=== PATIENT | male | born 2000 | race Caucasian/White ===

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

== ENCOUNTER 2019-06-21 10:06 | Emergency (ER) | payer BC ==
[2019-06-21 11:09] VITALS: BP 119/58
[2019-06-21] MEDS ORDERED: Ibuprofen TAB* 400 MG PO ONE (11:40)
--- NOTE | 2019-06-21 11:41 | UC ---
Throat Pain/Nasal Hany HPI - HPI Summary HPI Summary: 19 y/o male presents to the urgent care c/o nasal congestion w/ yellowish nasal discharge for the past 2 weeks. Symptoms have worsen now w/ sore throat, GUTIERREZ, body aches. B/L ear pain and pressure, fatigue. Pain w/ swallowing is 5/10 w/ swollen tonsils for the past 4 days. He has felt earm, but has not taken his temp. Pt has taken OTD medications w/o any improvement. Pt denies SOB, dizziness GUTIERREZ, abdominal pain, chest pain, N/V/d. - History of Current Complaint Chief Complaint: UCRespiratory Stated Complaint: ST,SWOLLEN NECK,LEFT EAR PAIN Time Seen by Provider: 06/21/19 11:39 Hx Obtained From: Patient Onset/Duration: Gradual Onset, Lasting Weeks - 3 weeks, Still Present, Worse Since - 4 days w/ sore throat Severity: Moderate Pain Intensity: 5 - sore throat Pain Scale Used: 0-10 Numeric Cough: Nonproductive Associated Signs & Symptoms: Positive: Sinus Discomfort, Nasal Discharge - green , Fever - now - Epiglottits Risk Factors Epiglottis Risk Factors: Negative - Allergies/Home Medications Allergies/Adverse Reactions: Allergies Allergy/AdvReac Type Severity Reaction Status Date / Time No Known Allergies Allergy Verified 06/21/19 11:01 Home Medications: Home Medications Doxylam/PE/Dm/Acetaminophen/GG [Mucinex Sinus-Max Day/Nig] 1 cap PO PRN [History] PMH/Surg Hx/FS Hx/Imm Hx Previously Healthy: Yes - PT denies PMHX - Surgical History Surgical History: None - Family History Known Family History: Positive: None - Pt deneis FMHX Negative: Hypertension, Diabetes - Social History Occupation: Employed Full-time Lives: With Family Alcohol Use: Occasionally Substance Use Type: None Smoking Status (MU): Former Smoker Type: Cigarettes When Did the Patient Quit Smoking/Using Tobacco: THREE WEEKS AGO - Immunization History Vaccination Up to Date: Yes Review of Systems All Other Systems Reviewed And Are Negative: Yes Constitutional: Positive: Chills, Other - body aches Skin: Positive: Negative Eyes: Positive: Negative ENT: Positive: Sore Throat, Ear Ache - left ear pain, Nasal Discharge - green, Sinus Congestion, Sinus Pain/Tenderness, Other - green PND Respiratory: Positive: Cough - dry Cardiovascular: Positive: Negative Gastrointestinal: Positive: Negative Genitourinary: Positive: Negative Motor: Positive: Negative Neurovascular: Positive: Negative Musculoskeletal: Positive: Negative Neurological: Positive: Headache Psychological: Positive: Negative Is Patient Immunocompromised?: No Physical Exam - Summary Physical Exam Summary: VITAL SIGNS: Reviewed. GENERAL: Patient is a well developed and nourished male who is sitting comfortable in the examining table. Patient is not in any acute respiratory distress. HEAD AND FACE: No signs of trauma. No ecchymosis, hematomas or skull depressions. B/L maxillary and frontal sinus tenderness. EYES: PERRLA, EOMI x 2, No injected conjunctiva, no nystagmus. No photophobia. EARS: Hearing grossly intact. B/L ear canals clear. LF TM injected w/ erythema , bulging and mild discharge. No perforation. MOUTH: Positive pharynx with erythema, exudates, palatal petechiae. B/L tonsillar enlargement with no exudate. Uvula in midline.moderate yellowish PND NECK: Supple, trachea is midline, Positive anterior cervical lymphadenopathy, no JVD, no carotid bruit, no c-spine tenderness, neck with full ROM. No meningeal signs, no Kernig's or brudzinskis signs. CHEST: Symmetric, no tenderness at palpation LUNGS: Clear to auscultation bilaterally. No wheezing or crackles. CVS: Regular rate and rhythm, S1 and S2 present, no murmurs or gallops appreciated. ABDOMEN: Soft, non-tender. No signs of distention. No rebound no guarding, and no masses palpated. Bowel sounds are normal. EXTREMITIES: FROM in all major joints, no edema, no cyanosis or clubbing. NEURO: Alert and oriented x 3. No acute neurological deficits. Speech is normal and follows commands. SKIN: Dry and warm Triage Information Reviewed: Yes Vital Signs: Initial Vital Signs Temp 100.3 F 06/21/19 11:02 Pulse 100 06/21/19 11:02 Resp 18 06/21/19 11:02 BP 119/58 06/21/19 11:02 Pulse Ox 100 06/21/19 11:02 Throat Pain/Nasal Course/Dx - Course Course Of Treatment: 19 y/o male presents to the urgent care c/o nasal congestion w/ yellowish nasal discharge for the past 2 weeks. Symptoms have worsen now w/ sore throat, GUTIERREZ, body aches. B/L ear pain and pressure, fatigue. Pain w/ swallowing is 5/10 w/ swollen tonsils for the past 4 days. He has felt warm, but has not taken his temp. Pt has taken OTD medications w/o any improvement. Pt denies SOB, dizziness GUTIERREZ, abdominal pain, chest pain, N/V/d. Hx obtained. Pt is hemodynamically stable, A&OX3, temp:100.3. Pt given ibuprofen PO at the clinic by nurse to alleviate symptoms. Pt tolerated well medication and temp decrease. Pt w/ acute bacterial sinusitis and left otitis Media on examination. Rapid strep: negative. Pt Rx Amoxicillin PO and flonase nasal spray. Discharge instructions explained to Pt. Advised to Return to the clinic or PCP if symptoms do not improve.Pt understood and agreed with plan of care. - Differential Dx/Diagnosis Differential Diagnosis/HQI/PQRI: Influenza, Otitis Media, Pharyngitis, Sinusitis , URI Provider Diagnosis: Left otitis media, Acute bacterial sinusitis Discharge ED - Sign-Out/Discharge Documenting (check all that apply): Patient Departure - D/C home All imaging exams completed and their final reports reviewed: No Studies - Discharge Plan Condition: Stable Disposition: HOME Prescriptions: Amoxicillin PO (*) [Amoxicillin 875 MG (*)] 875 mg PO BID #20 tab Fluticasone NASAL SPRAY 50MCG* [Flonase NASAL SPRAY 50MCG*] 2 spray BOTH NARES DAILY #1 btl Patient Education Materials: Sinusitis (ED), Ear Infection (ED) Forms: *Work Release Referrals: [facility] [Outside] - 3 Days Additional Instructions: 1- Please take the full course of the antibiotic to avoid resistance.Take yogurts w/ probiotics or Culturelle to protect your GI system 2-Please take ibuprofen PO q6-8hrs prn as instructed after meals to alleviate pain and swelling. Increase fluid intake, eat well, rest and avoid strenuous exercise 3-Use Flonase nasal spray as directed to help drain fluid. Also buy saline drops to clear sinuses 4-If symptoms do not improve or worsen please return to the urgent care or f/u with your PCP 3 days for further evaluation and treatment. - Billing Disposition and Condition Condition: STABLE Disposition: Home
== END 2019-06-21 12:07 | disposition home or self-care (01) ==
LOC: UCCORT 10:06
DX: H66.92 Otitis media, unspecified, left ear (principal); J01.90 Acute sinusitis, unspecified; B96.89 Other specified bacterial agents as the cause of diseases classified elsewhere; Z87.891 Personal history of nicotine dependence
CPT/HCPCS: 87651; 99212; A9270-GY; G0463